=== PATIENT | female | born 1950 | race Hispanic/Latino ===

== ENCOUNTER 2017-04-19 06:41 | Day surgery (SDC) | payer MEDICARE ==
--- NOTE | 2017-04-14 11:58 | Anesthesia Consultation ---
Anesthesia Consult and Med Hx Date of service: 04/14/17 - Airway Anesthetic Teeth Evaluation: Good ROM Head & Neck: Adequate Mental/Hyoid Distance: Adequate Mallampati Class: Class II Intubation Access Assessment: Probably Good - Pulmonary Exam CTA: Yes - Cardiac Exam Cardiac Exam: RRR - Pre-Operative Health Status ASA Pre-Surgery Classification: ASA3 Proposed Anesthetic Plan: General - Pulmonary Hx Smoking: No Hx Pneumonia: Yes Hx Sleep Apnea: No (EBONIE PRE SCREEN HIGH RISK) - Cardiovascular System Hx Hypertension: Yes (X 10 YRS) Hx Coronary Artery Disease: (hyperlipidemia) Hx Heart Attack/AMI: No Hx Pacemaker: No Hx Internal Defibrillator: No - Central Nervous System Hx Neuromuscular Disorder: Yes (Lupus) Hx Seizures: Yes (X 1 14 YRS AGO- NEVER PUT ON MEDS) Hx Back Pain: Yes (NECK.BACK PAIN) Hx Psychiatric Problems: Yes (depression/anxiety/panic attacks) - Gastrointestinal Hx Gastroesophageal Reflux Disease: Yes (mild) - Endocrine Hx Renal Disease: Yes (renal insufficiency) Hx Insulin Dependent Diabetes: Yes Hx Hypothyroidism: Yes (ON MEDS) - Hematic Hx Anemia: Yes - Other Systems Hx Cancer: No
[2017-04-14 12:23] LABS: Basophils % (Auto) 0.3 % (0.0-1.8); Hematocrit 38.9 % (30.3-42.9); Hemoglobin 13.3 gm/dl (10.1-14.3); Mean Corpuscular HGB Conc 34 % (30-34); Mean Corpuscular Hemoglobin 29 pg (28-32); Mean Corpuscular Volume 86 fl (79-97); Platelet Count 268 K/mm3 (140-440); Red Blood Count 4.55 M/mm3 (3.65-5.03); Red Cell Distribution Width 13.6 % (13.2-15.2); White Blood Count 6.7 K/mm3 (4.5-11.0)
[2017-04-14 12:37] LABS: INR 0.91 (0.87-1.13)
[2017-04-14 12:38] LABS: Partial Thromboplastin Time 27.1 Sec. (24.2-36.6)
[2017-04-14 12:50] LABS: Albumin 3.9 g/dL (3.9-5); Albumin/Globulin Ratio 1.1 %; Bilirubin,Total 0.3 mg/dL (0.1-1.2); Chloride 104.5 mmol/L (98-107); Potassium 3.7 mmol/L (3.6-5.0); Total Protein 7.4 g/dL (6.3-8.2)
[~2017-04-19 06:41] MED LIST: ANCEF/STERILE WATER 2 GM/20 ML 2 GM/20 ML SYRINGE IV NR
[2017-04-19] MEDS ORDERED: XYLOCAINE 1%/ EPI 1:100,000 INFILTRATI ONE (06:58)
[2017-04-19] MEDS ORDERED: VERSED IV NR (07:00)
[2017-04-19] MEDS ORDERED: MARCAINE-EPI/PF 0.5%-1:200,000 INFILTRATI ONE (07:26)
[2017-04-19] MEDS ORDERED: NACL BACTERIOSTATIC INFILTRATI ONE (07:58)
[2017-04-19] MEDS ORDERED: XYLOCAINE 1% 20 mL ONE (08:28)
[2017-04-19] MEDS ORDERED: PEPCID ONE (08:29)
[2017-04-19] MEDS: NACL 0.9% 1000 ML 1,000 ML IV SCH ×2 (08:37→11:00)
[2017-04-19] MEDS ORDERED: XYLOCAINE MPF 2% ONE (08:52)
[2017-04-19] MEDS ORDERED: SUBLIMAZE ONE (08:52)
[2017-04-19] MEDS ORDERED: DIPRIVAN 10 MG/ML IV ONE (08:53)
[2017-04-19] MEDS ORDERED: ZOFRAN IV PRN (09:00)
[2017-04-19] MEDS ORDERED: TRANSDERM-SCOP TD NR (09:00)
[2017-04-19] MEDS ORDERED: PEPCID PO NR (09:00)
[2017-04-19] MEDS ORDERED: MORPHINE IV PRN (09:00)
[2017-04-19] MEDS ORDERED: XYLOCAINE 1% 20 mL INFILTRATI ONE (09:39)
[2017-04-19] MEDS ORDERED: MARCAINE-EPI 0.5%-1:200,000 INFILTRATI ONE (09:39)
[2017-04-19] MEDS ORDERED: ePHEDrine SULFATE ONE (09:40)
[2017-04-19] MEDS ORDERED: ADRENALIN IV ONE (09:44)
--- NOTE | 2017-04-19 10:11 | Short Stay Summary ---
Short Stay Documentation Date of service: 04/19/17 - History H&P: obtained from office - Allergies and Medications Current Medications: Allergies ativan Allergy (Uncoded 04/13/17 11:00) AGITATION Home Medications Medication Instructions Recorded Confirmed Last Taken Type Diazepam Tab [Valium] 10 mg PO PRN PRN 04/05/13 04/13/17 04/18/17 History FLUoxetine [PROzac] 40 mg PO QDAY 04/05/13 04/13/17 04/18/17 History Furosemide [Lasix TAB] 80 mg PO Q72HR 04/05/13 04/19/17 04/17/17 History Levothyroxine Sodium 200 mcg PO QAM 04/05/13 04/19/17 04/19/17 05:30 History [Levothyroxine] Metoprolol Xl [Metoprolol 25 mg PO QDAY 04/05/13 04/19/17 04/19/17 05:30 History SUCCINATE ER TAB] Omeprazole [Prilosec] 10 mg PO QDAY 04/05/13 04/13/17 04/18/17 History Hydroxychloroquine [Plaquenil] 200 mg PO BID 04/06/13 04/13/17 04/18/17 History Ondansetron [Zofran TAB] 8 mg PO Q6H PRN 04/06/13 04/13/17 04/18/17 History Simvastatin [Zocor TAB] 10 mg PO QHS 01/18/14 04/13/17 04/18/17 History Oxycodone HCl/Acetaminophen 1 each PO Q4H PRN #20 tablet 01/25/14 04/19/1704/17 Rx [Percocet 10/325 mg] Aspirin [Lo-Dose Aspirin EC] 81 mg PO DAILY 04/13/17 04/19/17 04/12/17 History Liraglutide [Victoza 2-Pedro] 12.5 mg SQ QDAY 04/13/17 04/19/17 04/12/17 History buPROPion SR [Wellbutrin Sr] 150 mg PO BID 04/13/17 04/13/17 04/18/17 History Active Medications Famotidine (Pepcid) 20 mg PO PREOP NR Stop: 04/19/17 12:00 Last Admin: 04/19/17 08:28 Dose: 20 mg Hydromorphone HCl (Dilaudid) 0.5 mg IV Q10MIN PRN PRN Reason: Pain , Severe (7-10) Stop: 04/19/17 12:00 Cefazolin Sodium (Ancef/Sterile Water 2 Gm/20 Ml) 2 gm in 20 mls @ 80 mls/hr IV PREOP NR PRN Reason: Protocol Stop: 04/19/17 23:59 Sodium Chloride (Nacl 0.9% 1000 Ml) 1,000 mls @ 100 mls/hr IV DIRECT ALBIN Last Admin: 04/19/17 08:37 Dose: 100 mls/hr Midazolam HCl (Versed) 2 mg IV PREOP NR Stop: 04/19/17 23:59 Last Admin: 04/19/17 08:39 Dose: 2 mg Morphine Sulfate (Morphine) 4 mg IV Q10MIN PRN PRN Reason: Pain , Severe (7-10) Stop: 04/19/17 15:00 Scopolamine (Transderm-Scop) 1 each TD PREOP NR Stop: 04/19/17 13:00 Last Admin: 04/19/17 08:47 Dose: 1 each - Brief post op/procedure progress note Date of procedure: 04/19/17 Pre-op diagnosis: persistent left knee pain, medial meniscus tear Post-op diagnosis: other (persistent left knee pain, large complex tear posterior horn medial meniscus, articular cartilage wear of all 3 compartments) Procedure: left knee arthroscopy, partial medial meniscectomy Anesthesia: GETA Findings: as above Surgeon: FRANKLIN CASSIDY [employer] Agent: CINDY WEEKS III Estimated blood loss: minimal Pathology: none Condition: stable - Hospital course Hospital course: no perioperative complications - Disposition Condition at discharge: Stable Disposition: DC-01 TO HOME OR SELFCARE Short Stay Discharge Plan Follow up with: CARYL RODRIGUEZ MD [Primary Care Provider] - 7 Days
[2017-04-19] MEDS ORDERED: DECADRON ONE (10:15)
[2017-04-19] MEDS ORDERED: ZOFRAN ONE (10:15)
[2017-04-19] MEDS ORDERED: DILAUDID ONE (10:18)
[2017-04-19] MEDS ORDERED: BENADRYL ONE (10:30)
--- NOTE | 2017-04-19 10:30 | Anesthesia Day of Surgery ---
Anesthesia Day of Surgery - Day of Surgery Patient Examined: Yes Patient H&P Reviewed: Yes Patient is NPO: Yes Beta Blockers: Yes
--- NOTE | 2017-04-19 10:30 | Post Anesthesia Evaluation ---
- Post Anesthesia Evaluation Patient Participated: Yes Airway Patent: Yes Stable Respiratory Function: Yes Nausea/Vomiting: No Temp > 96.8F: Yes Pain Manageable: Yes Adequeate Hydration: Yes Anesthesia Complications: No Block Receding Appropriately: Not Applicable Patient on Ventilator: No
[2017-04-19] MEDS: DILAUDID IV PRN ×3 (10:40→11:15)
[2017-04-19] MEDS ORDERED: BENADRYL IV ONE (11:00)
[2017-04-19 17:22] VITALS: BP 139/90
--- NOTE | 2017-04-19 18:31 | Operative Report ---
PREOPERATIVE DIAGNOSES: Persistent left knee pain with mechanical symptoms, medial meniscus tear. POSTOPERATIVE DIAGNOSES: Persistent left knee pain with mechanical symptoms, large complex tear located within the posterior horn of the medial meniscus, grade 3 articular cartilage loss over the entire weightbearing portion of the medial femoral condyle, grade 3 small degenerative wear at the junction of the anterior and posterior horn of the lateral meniscus, grade 1 articular cartilage loss in the central aspect of the lateral femoral condyle and lateral tibial plateau. Small osteophytes located within the notch. Small cartilaginous loose bodies located diffusely throughout the intra-articular aspect of the left knee. Small articular cartilage wear in the central aspect of the patella and trochlea, grade 1. PROCEDURES: Left knee arthroscopy and partial medial meniscectomy. SURGEON: Tim Duarte M.D. BARREL LINER: Fabrice Plata M.D. ANESTHESIA: General. PREOPERATIVE ANTIBIOTICS: Ancef 2 g IV within 1 hour of skin incision. DVT PROPHYLAXIS: Open toe, thigh high compression stockings and SCD pumps to the nonoperative right lower extremity. OPERATIVE COMPLICATIONS: None. PREOPERATIVE HISTORY AND PHYSICAL: This is a 66-year-old female who has had persistent progressive worsening left knee pain with mechanical symptoms, which has failed to improve despite extensive nonoperative treatment. MRI scan of the left knee performed was positive for tear located within the posterior horn of the medial meniscus. The patient's MRI findings and diagnosis were discussed at length. After making sure, the patient understood the diagnoses and all of her questions were answered. We then discussed treatment alternatives of surgical and nonsurgical including risks and benefits of both. After a long lengthy discussion, the patient opted to proceed with operative intervention. This will entail a left knee arthroscopy, partial medial meniscectomy and surgery as indicated. The risks which were discussed to include, but not exclusive of infection, blood loss, nerve damage, loss of range of motion, persistent pain. Again, the patient understood. All questions were answered and she wished to proceed with operative intervention. DESCRIPTION OF PROCEDURE: The patient was seen in preop holding area, at which point, informed consent was reviewed and the appropriate left upper extremity was identified and then marked. The patient was brought back to the operating room and placed supine on a standard operating room table at which point, general anesthesia was administered and an LMA tube was inserted. After confirmation of adequate general anesthesia, appropriate placement of the LMA tube, we then made sure that all bony prominences were well padded and that there were no wrinkles in the compression stocking in the right lower extremity and SCD pumps were applied to the right lower extremity. The arm was secured in a neutral position on the patient's side with the arm boards. The hip was secured in nice neutral position as well. The left lower extremity was then examined under anesthesia. The patient was seen to have full range of motion. There is no evidence of instability with a negative Marko, negative anterior drawer, negative posterior drawer. No varus or valgus instability at 0 as well as 30 degrees of flexion. No recurvatum or excessive external rotation when compared to the opposite extremity. Following this, the left lower extremity was then prepped and draped in the usual sterile fashion. After prepping and draping, a timeout was called and appropriate left lower extremity was identified, which again had been marked in the preoperative holding room area. We began our procedure by first infiltrating the knee with 15 mL of 0.5% Marcaine with epinephrine and 30 mL of 1% lidocaine without epinephrine, which the patient tolerated well and there were no complications. Following this, we began the procedure by first making a standard anterolateral portal with a #15 blade. Once the portal was established, a blunt trocar was inserted into the intra-articular aspect of the knee joint. This went without difficulty or damage to articular cartilage. Once in place, the arthroscopic camera was immediately placed in the medial compartment. We established anteromedial portal by first inserting 18 gauge spinal needle in the anteromedial portal under direct arthroscopic visualization and was confirmed to be superior to medial meniscus. A 15 blade was then used to establish the anteromedial portal. Once the portal was established, a blunt trocar was inserted to widen the portal site. Followed with an arthroscopic probe, we began a diagnostic arthroscopy in the medial compartment with the patient to have a large complex tear located within the posterior horn of the medial meniscus. This was irreparable. We performed a partial medial meniscectomy in standard fashion using a series of basket punches and a 4.0 meniscal shaver down to a nice, smooth, stable, healthy remaining border and all in removing the white-white and white-red as well as a portion of the red-red zones. Inspection of the anterior horn of the meniscus showed it to be intact and stable when probed. There was mild grade 3 articular cartilage from the entire weightbearing portion of the medial femoral condyle and medial tibial plateau. The loose fibrinous cartilage edges, which were debrided using standard mechanical abrasion chondroplasty technique with a 4.0 meniscal shaver. Inspection of the notch showed the ACL and PCL to be intact and stable when probed. There were several osteophytes located in the superior aspect of the notch, which were gently debrided. Inspection of the lateral compartment carried out by patient in a [id number] position with steps . There was some degenerative wear at the junction of the anterior and posterior horn of the lateral meniscus, which were gently debrided using a 4.0 meniscal shaver. There was mild grade 1 articular cartilage in the central aspect of the lateral femoral condyle and lateral tibial plateau. Inspection of the medial and lateral gutters showed to be free and clear of all loose bodies. Inspection of patellofemoral joint showed to be mild grade 2 articular cartilage loss in the central aspect of patella and trochlea. Inspection of suprapatellar pouch to be free and clear of all loose bodies. Arthroscopic camera was then placed in the posterior aspect of the knee, just cruciate ligament and femoral condyle. Once the posterior aspect of the knee was felt there were no root tears present and there were no loose bodies. Arthroscopic camera was then removed from the posterior aspect of the knee. Arthroscopic pump was then turned off. The patient has good hemostasis. Once this was confirmed, a straight full suction from the knee using arthroscopic cannula. Following this, all arthroscopic instrumentation was removed. The 2 portal sites were closed with 3-0 nylon in simple fashion. Adaptic, 4 x 4, ABD and paper tape, small abduction sling was applied. The patient was sat down from the beach chair to supine position, was awakened from general anesthesia without complications to the recovery room in stable condition. Standard postoperative orders were written. Thank you very much. JOB# [id number] DANIA/ANALIA
== END 2017-04-19 13:54 | disposition home or self-care (01) ==
LOC: OR 06:41
PROVIDERS: ATTEND Orthopaedic Surgery
DX: M94.8X6 Other specified disorders of cartilage, lower leg (principal); M23.252 Derangement of posterior horn of lateral meniscus due to old tear or injury, left knee; M23.42 Loose body in knee, left knee; I10 Essential (primary) hypertension; E78.5 Hyperlipidemia, unspecified; E03.9 Hypothyroidism, unspecified; F41.9 Anxiety disorder, unspecified; F32.9 Major depressive disorder, single episode, unspecified; K21.9 Gastro-esophageal reflux disease without esophagitis; E11.9 Type 2 diabetes mellitus without complications; Z86.2 Personal history of diseases of the blood and blood-forming organs and certain disorders involving the immune mechanism; Z88.8 Allergy status to other drugs, medicaments and biological substances; X58.XXXA Exposure to other specified factors, initial encounter; Y93.89 Activity, other specified; Y92.89 Other specified places as the place of occurrence of the external cause; Y99.8 Other external cause status
CPT/HCPCS: 29881; 36415; 80053; 82962; 85025; 85610; 85730; 97161; G8978; G8979; G8980; J0171; J0690; J1100; J1170; J1200; J2250; J2405; J2704; J3010; J7030